=== PATIENT | female | born 1980 | race Two or more races ===

== ENCOUNTER 2016-12-23 20:00 | Inpatient (IN) | payer MEDICAID ==
[2016-12-23] MEDS ORDERED: OXYTOCIN IN LR 500 ML IV ONE ×2 (20:39→20:47)
[2016-12-23 20:40] VITALS: BMI 31.7
[2016-12-23] MEDS ORDERED: FENTANYL 100 MCG/2 ML VIAL IV PRN (20:40)
[2016-12-23] MEDS ORDERED: LACTATED RINGERS 0 ML ONE (20:47)
[2016-12-23] MEDS ORDERED: IV START KIT ONE (20:47)
[2016-12-23] MEDS ORDERED: LIDOCAINE 1% (PRES FREE) 30 ML VIAL ONE (20:47)
[2016-12-23] MEDS ORDERED: MINERAL OIL 25 ML BOT ONE (20:47)
[2016-12-23] MEDS ORDERED: PUMP TUBING ONE (20:47)
[2016-12-23] MEDS ORDERED: LIDOCAINE Viscous 2% 15 ML UDCUP ONE (20:47)
[2016-12-23] MEDS ORDERED: OXYTOCIN 10 UNITS/ML VIAL ONE (20:47)
--- NOTE | 2016-12-23 21:47 | PCMAN ---
OB Admission Note - History : 4 Term: 3 : 0 Abortions (S&E): 0 Livin Gestational Age (weeks): 39 Days (#/7): 0 Admit Cervical Dilation:: 3 Admit Cervical Effacement (%):: 90 Admit Station:: -1 Admit Presentaton:: vertex Membrane Status: Ruptured Rupture (Date): 12/23/16 Rupture (Time): 20:00 Membranes Comment:: clear Labor Onset (Date): 12/23/16 Labor Onset (Time): 16:00 Contraction Frequency:: q2m Heart Rate:: 150 (mod teresita/+accels/no decels) Status:: Cat 1 EFW:: 7# Summary of Course:: Uncomplicated course AMA: quad screen negative OBHx: 2004 @ term 2008 @ term 2012 @ term Dating Hx: LMP 03/25/16 STEPHEN 12/30/16 anatomy u/s 08/18/16 @ 21w1d, STEPHEN 12/28/16, normal anatomy scan - Labs Blood Type: O (+) positive Rubella Status: Immune GBS Status: Negative Abnormal Labs: None - Review of Systems +ctx, +LOF, no VB, good FM - Physical Exam General: Afebrile Psych/Mental Status: Mood/Affect Appropriate Neurological: Grossly Intact, Alert HEENT: Atraumatic, EOMI Lungs: Normal Air Movement Genitourinary: Normal Female Genitalia (small cyst on L labia) Extremities: No Edema - Problems (1) SROM (spontaneous rupture of membranes) Status: AcuteAssessment/Plan: 36 yo @ 39w0d presented in labor, SROM. 1. Labor: expectant management 2. FWB: cat 1 3. Pain: desires IV pain meds 4. GBS neg
--- NOTE | 2016-12-23 21:54 | PCMDEL ---
Delivery Note - Labor 1st stage (hr/min):: 5h11m 2nd stage (hr/min):: 4m 3rd stage (hr/min):: 4m Total (hr/min):: 5h19m Pushed (hr/min):: 4m - Delivery Delivery (Date): 12/23/16 Delivery (Time): 21:15 Gender: Male Presentation: Cephalic Position: OA Umbilical Cord: 3 Vessel Delayed Cord Clamping:: < 1-2 min 1 Minute Total: 8 5 Minute Total: 9 Placenta:: intact EBL:: 300ml Perineum:: superficial 1st degree lac, hemostatic so not repaired Suture:: none Anesthesia/Meds:: none Length ROM:: 1h15m Comments:: Pt admitted for active labor/SROM. Pt progressed to ant lip which was easily reduced. Pt pushed effectively, delivered head in [place] position. Anterior shoulder delivered and was visible, but notable for a tight fit. Pt continued pushing without a contraction. R arm pulled forward and across infant chest and easily delivered, then posterior shoulder easily delivered. Infant placed on maternal abodomen. Cord clamping delayed by 1 minute and cut by FOB. Cord blood collected. Active management of 3rd stage with IV pitocin. Placenta delivered intact, 3VC. A superficial first degree lac was hemostatic, so not repaired. Fundus firm, midline. hemostasis confirmed. EBL 300cc.
[2016-12-23] MEDS ORDERED: OXYCODONE HCL 5 MG TABLET PO PRN (21:59)
[2016-12-23] MEDS ORDERED: LANOLIN 50 APPLIC/7G TUBE TP PRN (21:59)
[2016-12-23] MEDS ORDERED: BENZOCAINE/MENTHOL 60 APPLIC/BOT TP PRN (21:59)
[2016-12-23] MEDS: IBUPROFEN 600 MG TABLET PO PRN (22:51)
[2016-12-23] MEDS: HYDROCODONE/ACETAMINOPHEN 5/325MG TABLET PO PRN (22:51)
[2016-12-24] MEDS: HYDROCODONE/ACETAMINOPHEN 5/325MG TABLET PO PRN ×4 (02:54→22:24)
[2016-12-24 06:47] LABS: HEMOGLOBIN 11.8 gm/l (12.0-16.0)
--- NOTE | 2016-12-24 09:15 | PDOC44 ---
- Subjective Day: 1 Reports Pain Tolerable, Reports , Reports Lochia Light, Reports Tolerating Regular Diet, Denies Nausea, Denies Vomiting, Denies Fever - Objective Temp Pulse Resp BP Pulse Ox 99.0 F 68 16 104/52 12/24/16 01:30 12/24/16 01:30 12/24/16 01:30 12/24/16 01:30 Lab Results 12/24/16 06:10 Hgb 11.8 L Hct 34.0 L Current Medications Generic Name Dose Route Start Last Admin Trade Name Freq PRN Reason Stop Dose Admin Acetaminophen/Hydrocodone Bitart 1 - 2 tab 12/23/16 21:59 12/24/16 02:54 [place] 5/325 PO 2 tab Q4H PRN Administration Pain (Moderate) Benzocaine/Menthol 1 applic 12/23/16 21:59 Dermoplast TP PRN PRN Patient Comfort Docusate Sodium 100 mg 12/23/16 21:59 Colace PO DAILY PRN Comfort Emollient Ointment 1 applic 12/23/16 21:59 12/24/16 03:05 [id number] TP 1 tube PRN PRN Administration sore nipples Ibuprofen 600 mg 12/23/16 21:59 12/23/16 22:51 Motrin PO 600 mg Q6H PRN Administration Pain (Mild) Oxycodone HCl 5 - 10 mg 12/23/16 21:59 Roxicodone PO Q3H PRN Pain (Severe) Sodium Chloride 10 ml 12/23/16 21:59 12/23/16 22:26 Normal Saline 10ml Flush IV 10 ml PRN PRN Administration IV Flush Sodium Chloride 10 ml 12/24/16 09:00 Normal Saline 10ml Flush IV Q8HR JHONNY - Physical Exam General: Afebrile, No Acute Distress Psych/Mental Status: Mood/Affect Appropriate, Bonding Well Neurological: Alert, Oriented x 4 Lungs: Clear to Auscultation Bilaterally Cardiovascular: Regular Rate and Rhythm Breast: Nipples Intact Fundus: Firm, Midline Extremities: Full ROM, No Edema, No Tenderness Skin: Normal Color, Warm, Dry, Intact, No Rash - Problems:Assessment/Plan (1) (normal spontaneous vaginal delivery) Status: AcuteAssessment/Plan: PPD1. Doing well. No concerns. BF well. Support with and business supervisor. Routine PP care. Disposition: Anticipate DC Home Tomorrow
[2016-12-24] MEDS: IBUPROFEN 600 MG TABLET PO PRN ×2 (09:23→17:29)
[2016-12-24] MEDS: DOCUSATE SODIUM 100 MG CAPSULE PO PRN (20:40)
[2016-12-25] MEDS: IBUPROFEN 600 MG TABLET PO PRN ×2 (05:18→12:14)
[2016-12-25] MEDS: HYDROCODONE/ACETAMINOPHEN 5/325MG TABLET PO PRN (05:18)
[2016-12-25 08:33] VITALS: BP 103/59
--- NOTE | 2016-12-25 09:32 | PDOC39B ---
Hospital Course: ADMIT DATE: 12/23/16 DISCHARGE DATE: 12/25/16 ADMISSION DIAGNOSES: Active labor at term PROCEDURES: Normal Spontaneous Vaginal Delivery HISTORY OF PRESENT ILLNESS/HOSPITAL COURSE: 36 year old G4 T3 L3 at 39 weeks 0 days presented to the [facility] in active labor and progressed to an uncomplicated normal spontaneous vaginal delivery. By day of discharge the patient is ambulating, eating, voiding, and passing flatus without difficulty. Pain is controlled and lochia is appropriate. She is . - Physical Exam Vital Signs: Temp Pulse Resp BP Pulse Ox 98.1 F 58 12 90/55 12/25/16 01:30 12/25/16 01:30 12/25/16 01:30 12/25/16 01:30 General: Afebrile, No Acute Distress Neurological: Alert, Oriented x 4 Lungs: Clear to Auscultation Bilaterally Cardiovascular: Regular Rate and Rhythm Fundus: Firm, Midline Extremities: Full ROM, No Edema Skin: Normal Color, Warm, Dry, Intact, No Rash - Discharge Diagnosis (1) (normal spontaneous vaginal delivery) Status: AcuteAssessment/Plan: PPD2. Nl exam and vitals. BF well. - Discharge Plan Condition: Good Disposition: Home Prescriptions: Docusate Sodium [COLACE 100 MG CAPSULE (SHF)] 100 mg PO BID PRN #60 cap PRN Reason: Constipation Docusate Sodium [COLACE 100 MG CAPSULE (SHF)] 100 mg PO BID PRN #60 cap PRN Reason: Constipation Ibuprofen [Motrin] 800 mg PO TID PRN #30 tablet PRN Reason: Pain Ibuprofen [Motrin] 800 mg PO TID PRN #30 tablet PRN Reason: Pain Follow-Up: Dinora Darling MD [Primary Care Provider] - In 6 weeks
[2016-12-25] MEDS: DOCUSATE SODIUM 100 MG CAPSULE PO PRN (12:14)
== END 2016-12-25 12:45 | disposition home or self-care (01) | DRG 775 ==
LOC: FBC 20:00 → FBCOUT 20:00 → FBC 20:36 → FBCOUT 20:36
PROVIDERS: ADMIT Family Medicine; ATTEND Family Medicine
PROC: 10E0XZZ Delivery of Products of Conception, External Approach (ICD-10-PCS; principal; 2016-12-23)
PROC: 0HQ9XZZ Repair Perineum Skin, External Approach (ICD-10-PCS; 2016-12-23)
DX: O70.0 First degree perineal laceration during delivery (principal); O09.523 Supervision of elderly multigravida, third trimester; O09.43 Supervision of pregnancy with grand multiparity, third trimester; Z3A.39 39 weeks gestation of pregnancy; Z37.0 Single live birth